=== PATIENT | female | born 1995 | race Caucasian/White ===

== ENCOUNTER 2017-08-24 12:41 | Emergency (ER) | payer OTHER | END 2017-08-24 17:06 | disposition home or self-care (01) | LOC: E/R 12:41 → FTE 17:06 | DX: J02.9 Acute pharyngitis, unspecified (principal); H92.01 Otalgia, right ear; F17.210 Nicotine dependence, cigarettes, uncomplicated | CPT/HCPCS: 71045; 87400; 99284-25 ==